=== PATIENT | male | born 1985 | race Caucasian/White ===

== ENCOUNTER 2017-04-18 13:54 | Emergency (ER) | payer OTHER ==
[2017-04-18] MEDS ORDERED: Naprosyn 500 MG PO ONE (14:47)
--- NOTE | 2017-04-18 14:51 | ERPHSYRPT ---
- History of Present Illness Time Seen by Provider: 04/18/17 14:36 Source: patient Patient Subjective Stated Complaint: last thursday was lifting something at work and felt pain in left shoulder. states the pain is getting worse and is unable to lift things at work. Triage Nursing Assessment: ambulated to room per self without difficulty. holding left shoulder. skin w/d, color normal. no deformities noted. arm warm , normal color and radial pulse good. 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 He noted left shoulder pain while working this past Thursday. Has used some naproxen from home. Pain persists and is worse with movement. No discreet fall or injury. No prior shoulder problems. No N/T. Extremities Pain Location: shoulder: left Allergies/Adverse Reactions: No Known Drug Allergies Allergy (Unverified 04/18/17 14:18) Home Medications: Alprazolam 1 mg [Xanax 1 mg] 1 mg PO BIDPRN PRN 04/18/17 [History] Hx Tetanus, Diphtheria Vaccination/Date Given: No Hx Influenza Vaccination/Date Given: No Hx Pneumococcal Vaccination/Date Given: No - Review of Systems Constitutional: No Fever, No Chills Respiratory: No Dyspnea Cardiac: No Chest Pain Musculoskeletal: Injury, Joint Pain (left shoulder), No Back Pain, No Neck Pain Neurological: No Focal Weakness, No Headache, No Parasthesia - Past Medical History Pertinent Past Medical History: No Neurological History: No Pertinent History Cardiac History: No Pertinent History Respiratory History: No Pertinent History Endocrine Medical History: No Pertinent History Musculoskeletal History: No Pertinent History Other Medical History: NONE NOTED - Past Surgical History Past Surgical History: No - Social History Smoking Status: Current every day smoker How long have you smoked: 13 Exposure to second hand smoke: Yes Drug Use: none Patient Lives Alone: No - Nursing Vital Signs Nursing Vital Signs: Initial Vital Signs Temperature 98 F 04/18/17 14:14 Pulse Rate 69 04/18/17 14:14 Respiratory Rate 16 04/18/17 14:14 Blood Pressure 140/77 04/18/17 14:14 O2 Sat by Pulse Oximetry 99 04/18/17 14:14 Pain Scale Pain Intensity 10 - Physical Exam General Appearance: alert Eyes, Ears, Nose, Throat Exam: moist mucous membranes Neck Exam: normal inspection, non-tender, supple Cardiovascular/Respiratory Exam: chest non-tender, normal breath sounds, regular rate/rhythm Back Exam: normal inspection, No vertebral tenderness Shoulder Exam: normal inspection, normal ROM, soft tissue tenderness Elbow/Forearm Exam: normal inspection, non-tender, no evidence of injury Wrist Exam: normal inspection, non-tender, no evidence of injury Hand Exam: normal inspection, non-tender, no evidence of injury Neuro/Tendon Exam: normal sensation, normal motor functions Mental Status Exam: alert, oriented x 3, cooperative Skin Exam: warm, dry SpO2 Interpretation: normal SpO2: 99 - Course Nursing assessment & vital signs reviewed: Yes - Radiology Exams left shoulder X-ray Interpretation: Reviewed by me, No Fracture, Nml Alignment Ordered Tests: Active Orders 24 hr Category Date Time Status Cold Application STAT Care 04/18/17 14:45 Active Sling Application STAT Care 04/18/17 14:45 Active SHOULDER Stat Exams 04/18/17 14:46 Ordered Medication Summary Discontinued Medications Generic Name Dose Route Start Last Admin Trade Name Rajat PRN Reason Stop Dose Admin Naproxen 500 mg 04/18/17 14:47 04/18/17 15:21 Naprosyn 500 Mg PO 04/18/17 14:48 500 mg STAT ONE Administration - Progress Progress Note: 04/18/17 15:28 Advised rest, ice, brief sling (discussed risk of frozen shoulder), continue naproxen as already taking, follow up. Counseled pt/family regarding: diagnosis, need for follow-up, rad results - Departure Time of Disposition: 15:29 Departure Disposition: Home Clinical Impression: Sprain of left shoulder Qualifiers: Encounter type: initial encounter Shoulder sprain type: unspecified sprain Qualified Code(s): S43.402A - Unspecified sprain of left shoulder joint, initial encounter Condition: Stable Critical Care Time: No Referrals: LEEANNA LOVELACE [Primary Care Provider] - Instructions: Shoulder Sprain, Shoulder Pain Additional Instructions: Brief sling for 1-2 days- take the arm out and do gentle range of motion a few times a day. Ice packs off and on. Continue naproxen as already taking. Follow up Thursday with Worker's comp doctor or Dr Lovelace. Limited use of left arm at work as restriction.
[2017-04-18 15:42] VITALS: BP 128/60; PULSE 71; O2SAT 97
--- NOTE | 2017-04-18 20:48 | XRAY ---
Indication: Pain with movement. Comparison: None 3 views of the left shoulder demonstrates mild acromioclavicular degenerative arthropathy. No other bony, articular, or soft tissue abnormalities.
== END 2017-04-18 15:42 | disposition home or self-care (01) ==
LOC: ED 13:54
DX: S43.402A Unspecified sprain of left shoulder joint, initial encounter (principal); X50.0XXA Overexertion from strenuous movement or load, initial encounter; Y92.69 Other specified industrial and construction area as the place of occurrence of the external cause; Y99.0 Civilian activity done for income or pay
CPT/HCPCS: 73030; 99283; A9270-GY

== ENCOUNTER 2020-04-10 19:52 | Emergency (ER) | payer OTHER ==
[2020-04-10] MEDS ORDERED: MORPHINE SULFATE 2 MG INJ IV ONE (20:08)
[2020-04-10] MEDS ORDERED: Zofran 4 MG/2 ML VIAL IV ONE (20:08)
[2020-04-10] MEDS ORDERED: Sodium Chloride 0.9% 1000 ML 1,000 ML IV STA (20:08)
[2020-04-10] MEDS ORDERED: Zofran 4 MG/2 ML VIAL ONE (20:13)
[2020-04-10] MEDS ORDERED: MORPHINE SULFATE 2 MG INJ ONE (20:13)
[2020-04-10] MEDS ORDERED: Sodium Chloride 0.9% 1000 ML 1,000 ML ONE (20:13)
--- NOTE | 2020-04-10 20:23 | ERPHSYRPT ---
- History of Present Illness Time Seen by Provider: 04/10/20 20:00 Historian: patient Patient Subjective Stated Complaint: " I have had pain in my belly ever since about 5pm tonight, it has been constant and it's sharp. I was eating when the pain started." Triage Nursing Assessment: Pt presents to ER with complaints of RUQ abd pains since approx 1700 today. Pt is alert and oriented x3. Ambulates without difficulty. Pt denies nausea, vomiting, diarrhea. States last BM was today and it was normal. States pain is 7/10 scale and is constant, sharp pain. Denies radiation of pain. Pt skin is pink, warm, and dry. Abd is soft but tender on right upper quad. States hurts worse with palpation. Physician History: Patient is a 34-year-old male presents to our ED with complaints of right upper quadrant pain. Right upper quadrant pain started approximately 5 PM after eating pizza. Pain described as a sharp sensation that is well localized. No radiation. Pain rated 7 out of 10. No associated nausea vomiting or diarrhea. No trauma. No fevers. Symptoms are moderate in intensity. Pain worse with palpation to the right upper quadrant. Pain improved with rest. Patient states otherwise healthy. No history of gallstones that he is aware of. Patient denies history of alcohol use. Patient is otherwise healthy. He voices no other complaints concerns at this time. Timing/Duration: today Activities at Onset: none Quality: sharpness Abdominal Pain Onset Location: RUQ Pain Radiation: no radiation Severity of Pain-Max: moderate Severity of Pain-Current: moderate Associated Symptoms: No chest pain, No diaphoresis, No diarrhea, No headache, No heartburn, No nausea, No neck pain, No rash, No shortness of breath, No syncope, No testicular pain, No vomiting, No weakness Previous symptoms: no prior history Allergies/Adverse Reactions: No Known Drug Allergies Allergy (Verified 04/10/20 20:02) Home Medications: Alprazolam 1 mg [Xanax 1 mg] 1 mg PO BIDPRN PRN 04/18/17 [History] Hx Tetanus, Diphtheria Vaccination/Date Given: Yes Hx Influenza Vaccination/Date Given: Yes Hx Pneumococcal Vaccination/Date Given: No Immunizations Up to Date: Yes Travel Risk - International Travel Have you traveled outside of the country in past 3 weeks: No - Coronavirus Screening Are you exhibiting any of the following symptoms?: No Close contact with a COVID-19 positive Pt in past 14-21 Days: No - Review of Systems Constitutional: No Symptoms, No Fever, No Chills Eyes: No Symptoms Ears, Nose, & Throat: No Symptoms Respiratory: No Symptoms, No Cough, No Dyspnea Cardiac: No Symptoms, No Chest Pain, No Edema, No Syncope Abdominal/Gastrointestinal: No Symptoms, No Abdominal Pain, No Nausea, No Vomiting, No Diarrhea Genitourinary Symptoms: No Symptoms, No Dysuria Musculoskeletal: No Symptoms, No Back Pain, No Neck Pain Skin: No Symptoms, No Rash Neurological: No Symptoms, No Dizziness, No Focal Weakness, No Sensory Changes Psychological: No Symptoms Endocrine: No Symptoms Hematologic/Lymphatic: No Symptoms Immunological/Allergic: No Symptoms All Other Systems: Reviewed and Negative - Past Medical History Pertinent Past Medical History: Yes Neurological History: No Pertinent History ENT History: No Pertinent History Cardiac History: No Pertinent History Respiratory History: No Pertinent History Endocrine Medical History: No Pertinent History Musculoskeletal History: No Pertinent History GI Medical History: No Pertinent History History: No Pertinent History Psycho-Social History: No Pertinent History Male Reproductive Disorders: No Pertinent History Other Medical History: HX FX'D RIGHT HAND LAST YEAR. ANXIETY - Past Surgical History Past Surgical History: Yes Other Surgical History: wisdom - Social History Smoking Status: Current every day smoker How long have you smoked: 16 years Exposure to second hand smoke: No Drug Use: none Patient Lives Alone: No - Nursing Vital Signs Nursing Vital Signs: Initial Vital Signs Temperature 97.8 F 04/10/20 19:57 Pulse Rate 87 04/10/20 19:57 Respiratory Rate 16 04/10/20 19:57 Blood Pressure 186/110 04/10/20 19:57 O2 Sat by Pulse Oximetry 97 04/10/20 19:57 Pain Scale Pain Intensity 4 - Physical Exam General Appearance: no apparent distress, alert Eye Exam: PERRL/EOMI, eyes nml inspection Ears, Nose, Throat Exam: normal ENT inspection, pharynx normal, moist mucous membranes Neck Exam: normal inspection, non-tender, supple, full range of motion Respiratory Exam: normal breath sounds, lungs clear, No respiratory distress Cardiovascular Exam: regular rate/rhythm, normal heart sounds Gastrointestinal/Abdomen Exam: soft, tenderness (Right upper quadrant tenderness to palpation. Overlying soft tissue intact. No signs of trauma.), guarding, No mass, No rebound, No hepatomegaly, No organomegaly Back Exam: normal inspection, normal range of motion, No CVA tenderness, No vertebral tenderness Extremity Exam: normal inspection, normal range of motion, pelvis stable Neurologic Exam: alert, oriented x 3, cooperative, normal mood/affect, nml cerebellar function, sensation nml, No motor deficits Skin Exam: normal color, warm, dry Lymphatic Exam: No adenopathy SpO2 Interpretation: normal SpO2: 97 O2 Delivery: Room Air - Course Nursing assessment & vital signs reviewed: Yes - CT Exams Abdomen/Pelvis CT Interpretation: Tele-radiologist Report (Gallbladder wall thickening and pericholecystic fluid. No definitive stone observed.) Ordered Tests: Active Orders 24 hr Category Date Time Status IV Insertion STAT Care 04/10/20 20:08 Active ABDOMEN AND PELVIS W CONTRAST [CT] Stat Exams 04/10/20 20:16 Taken CBC W DIFF Stat Lab 04/10/20 20:04 Completed CMP Stat Lab 04/10/20 20:04 Completed LIPASE Stat Lab 04/10/20 20:04 Completed TROPONIN Q3H Lab 04/10/20 20:04 Completed TROPONIN Q3H Lab 04/10/20 23:15 Ordered TROPONIN Q3H Lab 04/11/20 02:15 Ordered TROPONIN Q3H Lab 04/11/20 05:15 Ordered TROPONIN Q3H Lab 04/11/20 08:15 Ordered Medication Summary Discontinued Medications Generic Name Dose Route Start Last Admin Trade Name Freq PRN Reason Stop Dose Admin Sodium Chloride 1,000 mls @ 999 mls/hr 04/10/20 20:08 04/10/20 21:41 Sodium Chloride 0.9% 1000 Ml IV 04/10/20 21:08 Infused .Q1H1M STA Infusion Sodium Chloride Confirm 04/10/20 20:13 Sodium Chloride 0.9% 1000 Ml Administered 04/10/20 20:14 Dose 1,000 mls @ ud .ROUTE .STK-MED ONE Morphine Sulfate 2 mg 04/10/20 20:08 04/10/20 20:15 Morphine Sulfate 2 Mg Inj IV 04/10/20 20:09 2 mg STAT ONE Administration Morphine Sulfate Confirm 04/10/20 20:13 Morphine Sulfate 2 Mg Inj Administered 04/10/20 20:14 Dose 2 mg .ROUTE .STK-MED ONE Ondansetron HCl 4 mg 04/10/20 20:08 04/10/20 20:14 Zofran 4 Mg/2 Ml Vial IV 04/10/20 20:09 4 mg STAT ONE Administration Ondansetron HCl Confirm 04/10/20 20:13 Zofran 4 Mg/2 Ml Vial Administered 04/10/20 20:14 Dose 4 mg .ROUTE .STK-MED ONE Lab/Rad Data: Laboratory Result Diagrams 04/10/20 20:04 04/10/20 20:04 Laboratory Results 04/10/20 04/10/20 04/10/20 Range/Units 20:04 20:04 20:04 WBC 10.2 (4.0-10.5) K/mm3 RBC 5.18 (4.1-5.6) M/mm3 Hgb 15.4 (12.5-18.0) gm/dl Hct 46.5 (42-50) % MCV 89.8 (78-100) fl MCH 29.7 (26-32) pg MCHC 33.1 (32-36) g/dl RDW 13.4 (11.5-14.0) % Plt Count 249 (150-450) K/mm3 MPV 10.5 (7.5-11.0) fl Gran % 64.8 (36.0-66.0) % Eos # (Auto) 0.18 (0-0.5) Absolute Lymphs (auto) 2.77 (1.0-4.6) Absolute Monos (auto) 0.60 (0.0-1.3) Lymphocytes % 27.3 (24.0-44.0) % Monocytes % 5.9 (0.0-12.0) % Eosinophils % 1.8 (0.00-5.0) % Basophils % 0.2 (0.0-0.4) % Absolute Granulocytes 6.58 (1.4-6.9) Basophils # 0.02 (0-0.4) Sodium 141 (137-145) mmol/L Potassium 3.9 (3.5-5.1) mmol/L Chloride 105 (98-107) mmol/L Carbon Dioxide 30 (22-30) mmol/L Anion Gap 9.7 (5-15) MEQ/L BUN 11 (9-20) mg/dL Creatinine 0.95 (0.66-1.25) mg/dL Estimated GFR > 60.0 ML/MIN Glucose 107 H (74-106) mg/dL Calcium 9.6 (8.4-10.2) mg/dL Total Bilirubin 0.20 (0.2-1.3) mg/dL AST 26 (17-59) U/L ALT 32 (0-50) U/L Alkaline Phosphatase 76 (38-126) U/L Troponin I < 0.012 (0.000-0.034) ng/mL Serum Total Protein 7.6 (6.3-8.2) g/dL Albumin 4.6 (3.5-5.0) g/dL Lipase 98 (23-300) U/L - Progress Progress: improved Progress Note: 04/10/20 21:53 Patient reassessed. Pain improved. However patient continues to experience right upper quadrant pain. Case discussed with who suggested discharging patient and have him follow-up tomorrow however patient is uncomfo rtable and has received morphine for pain control. Dr. Mendez advised transfer to [facility]. Plan of care discussed with patient. He agrees to transfer to [facility]. However patient requesting to drive. We advised against that as patient just received morphine. Patient is calling family member for a ride to [facility]. We are arranging transfer on our end. 04/10/20 22:[address] Jordan who accepts transfer to [facility]. Plan of care discussed with patient. Discussed with : Mora Will see patient in: other (Transferred to [facility].) Counseled pt/family regarding: lab results, diagnosis, need for follow-up, rad results - Departure Departure Disposition: Transfer Clinical Impression: Acute cholecystitis, Splenomegaly, Abdominal pain Condition: Stable Critical Care Time: No Referrals: FELIPE BURRIS [Primary Care Provider] -
[2020-04-10 20:26] LABS: Absolute Neutrophil Ct (ANC) 6.58 (1.4-6.9); BASOPHIL % 0.2 % (0.0-0.4); Basophil (Absolute #) 0.02 (0-0.4); Eosinophil % 1.8 % (0.00-5.0); Eosinophil (Absolute #) 0.18 (0-0.5); Hematocrit 46.5 % (42-50); Hemoglobin 15.4 gm/dl (12.5-18.0); Lymphocyte (Absolute #) 2.77 (1.0-4.6); Lymphocytes % 27.3 % (24.0-44.0); Mean Cell Volume 89.8 fl (78-100); Mean Corpuscular Hemoglobin 29.7 pg (26-32); Mean Corpuscular Hgb Concent. 33.1 g/dl (32-36); Mean Platelet Volume 10.5 fl (7.5-11.0); Monocytes % 5.9 % (0.0-12.0); Neutrophil % 64.8 % (36.0-66.0); Platelet Count 249 K/mm3 (150-450); Red Blood Count 5.18 M/mm3 (4.1-5.6); Red Cell Distribution Width 13.4 % (11.5-14.0); White Blood Count 10.2 K/mm3 (4.0-10.5)
[2020-04-10 20:46] LABS: ALBUMIN 4.6 g/dL (3.5-5.0); ALKALINE PHOSPHATASE 76 U/L (38-126); ANION GAP 9.7 MEQ/L (5-15); BLOOD UREA NITROGEN 11 mg/dL (9-20); CHLORIDE 105 mmol/L (98-107); Calcium 9.6 mg/dL (8.4-10.2); Carbon Dioxide 30 mmol/L (22-30); Creatinine 1 0.95 mg/dL (0.66-1.25); EST GLOMERULAR FILTRATION RATE > 60.0 ML/MIN; Glucose 107 mg/dL (74-106); LIPASE 98 U/L (23-300); Potassium 3.9 mmol/L (3.5-5.1); SGOT/AST 26 U/L (17-59); SGPT/ALT 32 U/L (0-50); SODIUM 141 mmol/L (137-145); Total Protein 7.6 g/dL (6.3-8.2)
[2020-04-10] MEDS ORDERED: Zosyn 3.375 GM Vial 3.375 GM in Sodium Chloride 100ML MINI-BAG PLUS 100 ML IV ONE (22:17)
[2020-04-10] MEDS ORDERED: Zosyn 3.375 GM Vial IV ONE (22:20)
[2020-04-10] MEDS ORDERED: Sodium Chloride 100ML MINI-BAG PLUS 100 ML IV ONE (22:21)
[2020-04-11 02:04] VITALS: BP 124/93; PULSE 66; O2SAT 96
--- NOTE | 2020-04-11 08:41 | XRAY ---
Exam: CT of the abdomen and pelvis with IV contrast from 04/10/2020. CTDI: 10.07 mGy Comparison: CT of the abdomen and pelvis without IV contrast from 02/10/2020. Indication: 34-year-old male with right upper quadrant abdominal pain 3 hours. Technique: Post-IV contrast axial images were obtained through the abdomen and pelvis during automated injection of 80 ML's of Isovue 370 contrast material. No oral contrast was given. Reconstructed coronal and sagittal images were created and reviewed. Findings: The visualized lung bases appear clear. A moderate amount of fluid/secretions are noted within the stomach lumen. The liver is of unremarkable size and reveals no mass or intrahepatic biliary duct distention. The gallbladder is distended and reveals no dense calcifications within it. However, there is a suggestion of mild gallbladder wall thickening with perhaps a small amount of pericholecystic edema and fat stranding. These findings could be due to acute cholecystitis. Consider further evaluation with a gallbladder ultrasound or radionuclide hepatobiliary scan. The spleen is of normal size and reveals no mass. The pancreas and adrenal glands appear normal. The kidneys are of normal size and function on delay images. There is a small extrarenal pelvis on the left. No renal mass or hydronephrosis is seen. I see no evidence of renal calculi on the early post IV contrast images. There is no evidence of abdominal aortic aneurysm or abnormal retroperitoneal lymphadenopathy. No bowel containing ventral abdominal wall hernia or free intraperitoneal air is seen. There is a tiny amount of protrusion of intra-abdominal fat into the subcutaneous fat at the level of the umbilicus on sagittal images #104 and 105. Some scattered stool is seen throughout the colon. I see no evidence of bowel obstruction or bowel wall thickening. The appendix is noted within the right lower quadrant and appears unremarkable. I see no abnormal pelvic mass, enlarged pelvic lymph nodes, or free intraperitoneal fluid. The seminal vesicles and prostate gland appear unremarkable. No definite abnormality of the urinary bladder is seen. Some small postinflammatory lymph nodes are seen within each groin. The skeleton reveals no acute fracture or aggressive bone lesion. Impression: 1. There appears to be some gallbladder wall thickening with perhaps some pericholecystic edema/fluid and minimal fat stranding suspicious for acute cholecystitis. No definite dense calcifications are seen within the gallbladder lumen. Consider further evaluation with a gallbladder ultrasound or radionuclide hepatobiliary scan. 2. No other acute process is seen within the abdomen or pelvis.
== END 2020-04-11 02:13 | disposition short-term general hospital (02) ==
LOC: ED 19:52
DX: K81.0 Acute cholecystitis (principal); R16.1 Splenomegaly, not elsewhere classified; R10.9 Unspecified abdominal pain
CPT/HCPCS: 36000; 36415; 74177; 80053; 83690; 84484; 85025; 96360; 96365; 96374; 96375; 99285; J2270; J2405

== ENCOUNTER 2020-06-12 11:15 | Observation (INO) | payer OTHER ==
[2020-06-12 12:03] LABS: Absolute Neutrophil Ct (ANC) 7.32 (1.4-6.9); BASOPHIL % 0.3 % (0.0-0.4); Basophil (Absolute #) 0.03 (0-0.4); Eosinophil % 1.6 % (0.00-5.0); Eosinophil (Absolute #) 0.16 (0-0.5); Hematocrit 46.3 % (42-50); Hemoglobin 15.4 gm/dl (12.5-18.0); Lymphocyte (Absolute #) 1.96 (1.0-4.6); Lymphocytes % 19.3 % (24.0-44.0); Mean Cell Volume 90.6 fl (78-100); Mean Corpuscular Hemoglobin 30.1 pg (26-32); Mean Corpuscular Hgb Concent. 33.3 g/dl (32-36); Mean Platelet Volume 9.6 fl (7.5-11.0); Monocyte (Absolute #) 0.71 (0.0-1.3); Neutrophil % 71.8 % (36.0-66.0); Platelet Count 242 K/mm3 (150-450); Red Blood Count 5.11 M/mm3 (4.1-5.6); Red Cell Distribution Width 13.3 % (11.5-14.0); White Blood Count 10.2 K/mm3 (4.0-10.5)
[2020-06-12] MEDS ORDERED: MORPHINE SULFATE 2 MG INJ IV ONE (12:10)
--- NOTE | 2020-06-12 12:10 | ERPHSYRPT ---
- History of Present Illness Time Seen by Provider: 06/12/20 11:35 Historian: patient Exam Limitations: no limitations Patient Subjective Stated Complaint: Pt states that he is having pain in his RUQ that he states is his gall bladder due to he was having issues in March with it. Triage Nursing Assessment: Pt brought to the ER by his girlfriend, hypertensive, pain in the RUQ, pulses normal, diaphoretic, refuses to wear mask correctly, last intake at 0900, denies any issues with bowels, rates pain 5/10 Physician History: Patient is a 34-year-old male presents to our ED with complaints of right upper quadrant pain. Pain started today and became significantly worse after eating candy. Patient states he has a history of gallbladder disease. Patient does not know if he has got gallstones. Patient states that he had right upper quadrant pain in March. He has had no follow-up since. Pain described as an ache. That is localized. No radiation. Pain worse postprandial. Pain reproduced with palpation to the right upper quadrant. No trauma. No fever. No nausea or vomiting. No diarrhea. No chest pain or shortness of breath. Patient is otherwise healthy. He voices no other complaints or concerns at this time. Timing/Duration: today Activities at Onset: none Quality: aching Abdominal Pain Onset Location: RUQ Pain Radiation: no radiation Severity of Pain-Max: moderate Severity of Pain-Current: mild Modifying Factors: Improves With: eating, palpation, rest. Worsens With: breathing, coughing, defecating, exercise, lying down, urinating, vomiting, position, walking Associated Symptoms: No diaphoresis, No diarrhea, No fever/chills, No headache, No heartburn, No loss of appetite, No nausea, No neck pain, No shortness of breath, No vomiting, No weakness Previous symptoms: same symptoms as today Allergies/Adverse Reactions: No Known Drug Allergies Allergy (Verified 06/12/20 11:29) Home Medications: Alprazolam 1 mg [Xanax 1 mg] 1 mg PO BIDPRN PRN 04/18/17 [History] Hx Tetanus, Diphtheria Vaccination/Date Given: Yes Hx Influenza Vaccination/Date Given: Yes Hx Pneumococcal Vaccination/Date Given: No Travel Risk - International Travel Have you traveled outside of the country in past 3 weeks: No - Coronavirus Screening Are you exhibiting any of the following symptoms?: No Close contact with a COVID-19 positive Pt in past 14-21 Days: No - Review of Systems Constitutional: No Symptoms, No Fever, No Chills Eyes: No Symptoms Ears, Nose, & Throat: No Symptoms Respiratory: No Symptoms, No Cough, No Dyspnea Cardiac: No Symptoms, No Chest Pain, No Edema, No Syncope Abdominal/Gastrointestinal: No Symptoms, No Abdominal Pain, No Nausea, No Vomiting, No Diarrhea Genitourinary Symptoms: No Symptoms, No Dysuria Musculoskeletal: No Symptoms, No Back Pain, No Neck Pain Skin: No Symptoms, No Rash Neurological: No Symptoms, No Dizziness, No Focal Weakness, No Sensory Changes Psychological: No Symptoms Endocrine: No Symptoms Hematologic/Lymphatic: No Symptoms Immunological/Allergic: No Symptoms All Other Systems: Reviewed and Negative - Past Medical History Pertinent Past Medical History: Yes Neurological History: No Pertinent History ENT History: No Pertinent History Cardiac History: No Pertinent History Respiratory History: No Pertinent History Endocrine Medical History: No Pertinent History Musculoskeletal History: No Pertinent History GI Medical History: No Pertinent History History: No Pertinent History Psycho-Social History: No Pertinent History Male Reproductive Disorders: No Pertinent History Other Medical History: HX FX'D RIGHT HAND LAST YEAR. ANXIETY - Past Surgical History Past Surgical History: Yes Other Surgical History: wisdom - Social History Smoking Status: Current every day smoker How long have you smoked: 16 years Exposure to second hand smoke: Yes Drug Use: none Patient Lives Alone: No - Nursing Vital Signs Nursing Vital Signs: Initial Vital Signs Temperature 98.3 F 06/12/20 11:19 Pulse Rate 61 06/12/20 11:19 Blood Pressure 157/78 06/12/20 11:19 O2 Sat by Pulse Oximetry 99 06/12/20 11:19 Pain Scale Pain Intensity 5 - Physical Exam General Appearance: no apparent distress, alert Eye Exam: PERRL/EOMI, eyes nml inspection Ears, Nose, Throat Exam: normal ENT inspection, pharynx normal, moist mucous membranes Neck Exam: normal inspection, non-tender, supple, full range of motion Respiratory Exam: normal breath sounds, lungs clear, No respiratory distress Cardiovascular Exam: regular rate/rhythm, normal heart sounds Gastrointestinal/Abdomen Exam: soft, tenderness, other (Tenderness palpation right upper quadrant.), No distention, No mass, No guarding Back Exam: normal inspection, normal range of motion, No CVA tenderness, No vertebral tenderness Extremity Exam: normal inspection, normal range of motion, pelvis stable Neurologic Exam: alert, oriented x 3, cooperative, normal mood/affect, nml cerebellar function, sensation nml, No motor deficits Skin Exam: normal color, warm, dry Lymphatic Exam: No adenopathy SpO2 Interpretation: normal SpO2: 99 O2 Delivery: Room Air - Course Nursing assessment & vital signs reviewed: Yes - Radiology Ultrasound Exam Gallbladder Ultrasound: tele radiology report (Gallbladder is distended with tiny gallstones. Gallbladder wall is thickened. CBD is normal. Fatty liver. Pancreas not visualized.) Ordered Tests: Active Orders 24 hr Category Date Time Status ABDOMEN AND PELVIS W CONTRAST [CT] Stat Exams 06/12/20 11:27 Completed GALLBLADDER [US] Stat Exams 06/12/20 11:27 Completed CBC W DIFF Stat Lab 06/12/20 11:50 Completed CMP Stat Lab 06/12/20 11:50 Completed LIPASE Stat Lab 06/12/20 11:50 Completed TROPONIN Q3H Lab 06/12/20 11:50 Completed TROPONIN Q3H Lab 06/12/20 14:14 Completed TROPONIN Q3H Lab 06/12/20 17:30 Ordered TROPONIN Q3H Lab 06/12/20 20:30 Ordered TROPONIN Q3H Lab 06/12/20 23:30 Ordered UA W/RFX UR CULTURE Stat Lab 06/12/20 11:27 Ordered Medication Summary Generic Name Dose Route Start Last Admin Trade Name Freq PRN Reason Stop Dose Admin Miscellaneous Medication 1 each 06/12/20 15:58 No Anticoagulants Or Blood Thinners/Aspirin MC 07/12/20 15:57 PRN PRN Discontinued Medications Generic Name Dose Route Start Last Admin Trade Name Freq PRN Reason Stop Dose Admin Morphine Sulfate 2 mg 06/12/20 12:10 06/12/20 12:24 Morphine Sulfate 2 Mg Inj IV 06/12/20 12:11 2 mg STAT ONE Administration Morphine Sulfate Confirm 06/12/20 12:22 Morphine Sulfate 2 Mg Inj Administered 06/12/20 12:23 Dose 2 mg .ROUTE .Qumu-Attero ONE Lab/Rad Data: Laboratory Result Diagrams 06/12/20 11:50 06/12/20 11:50 Laboratory Results 06/12/20 06/12/20 06/12/20 Range/Units 14:14 11:50 11:50 WBC (4.0-10.5) K/mm3 RBC (4.1-5.6) M/mm3 Hgb (12.5-18.0) gm/dl Hct (42-50) % MCV (78-100) fl MCH (26-32) pg MCHC (32-36) g/dl RDW (11.5-14.0) % Plt Count (150-450) K/mm3 MPV (7.5-11.0) fl Gran % (36.0-66.0) % Eos # (Auto) (0-0.5) Absolute Lymphs (auto) (1.0-4.6) Absolute Monos (auto) (0.0-1.3) Lymphocytes % (24.0-44.0) % Monocytes % (0.0-12.0) % Eosinophils % (0.00-5.0) % Basophils % (0.0-0.4) % Absolute Granulocytes (1.4-6.9) Basophils # (0-0.4) Sodium 139 (137-145) mmol/L Potassium 4.1 (3.5-5.1) mmol/L Chloride 103 (98-107) mmol/L Carbon Dioxide 30 (22-30) mmol/L Anion Gap 9.7 (5-15) MEQ/L BUN 10 (9-20) mg/dL Creatinine 0.84 (0.66-1.25) mg/dL Estimated GFR > 60.0 ML/MIN Glucose 104 (74-106) mg/dL Calcium 9.3 (8.4-10.2) mg/dL Total Bilirubin 0.30 (0.2-1.3) mg/dL AST 19 (17-59) U/L ALT 25 (0-50) U/L Alkaline Phosphatase 82 (38-126) U/L Troponin I < 0.012 < 0.012 (0.000-0.034) ng/mL Serum Total Protein 7.4 (6.3-8.2) g/dL Albumin 4.2 (3.5-5.0) g/dL Lipase 60 (23-300) U/L 11/24/20 Range/Units 11:50 WBC 10.2 (4.0-10.5) K/mm3 RBC 5.11 (4.1-5.6) M/mm3 Hgb 15.4 (12.5-18.0) gm/dl Hct 46.3 (42-50) % MCV 90.6 (78-100) fl MCH 30.1 (26-32) pg MCHC 33.3 (32-36) g/dl RDW 13.3 (11.5-14.0) % Plt Count 242 (150-450) K/mm3 MPV 9.6 (7.5-11.0) fl Gran % 71.8 H (36.0-66.0) % Eos # (Auto) 0.16 (0-0.5) Absolute Lymphs (auto) 1.96 (1.0-4.6) Absolute Monos (auto) 0.71 (0.0-1.3) Lymphocytes % 19.3 L (24.0-44.0) % Monocytes % 7.0 (0.0-12.0) % Eosinophils % 1.6 (0.00-5.0) % Basophils % 0.3 (0.0-0.4) % Absolute Granulocytes 7.32 H (1.4-6.9) Basophils # 0.03 (0-0.4) Sodium (137-145) mmol/L Potassium (3.5-5.1) mmol/L Chloride (98-107) mmol/L Carbon Dioxide (22-30) mmol/L Anion Gap (5-15) MEQ/L BUN (9-20) mg/dL Creatinine (0.66-1.25) mg/dL Estimated GFR ML/MIN Glucose (74-106) mg/dL Calcium (8.4-10.2) mg/dL Total Bilirubin (0.2-1.3) mg/dL AST (17-59) U/L ALT (0-50) U/L Alkaline Phosphatase (38-126) U/L Troponin I (0.000-0.034) ng/mL Serum Total Protein (6.3-8.2) g/dL Albumin (3.5-5.0) g/dL Lipase (23-300) U/L - Progress Progress: improved Progress Note: 06/12/20 16:05 Imaging study of the gallbladder suggests chronic cholecystitis. Case discussed with Dr. Monroe. Dr. Monroe advised admission for cholecystectomy. Plan of care discussed with patient. Patient agrees. Patient wants her gallbladder removed that it has been a chronic issue since March and symptoms are getting progressively worse. Patient agrees to admission to [facility] for further evaluation and treatment. Patient is and will maintain n.p.o. status. Will see patient in: hospital (observation) Counseled pt/family regarding: lab results, diagnosis, rad results - Departure Clinical Impression: Chronic cholecystitis, Hepatic steatosis, Cholelithiasis Condition: Stable Critical Care Time: No
[2020-06-12 12:17] LABS: ALBUMIN 4.2 g/dL (3.5-5.0); ALKALINE PHOSPHATASE 82 U/L (38-126); ANION GAP 9.7 MEQ/L (5-15); BLOOD UREA NITROGEN 10 mg/dL (9-20); CHLORIDE 103 mmol/L (98-107); Calcium 9.3 mg/dL (8.4-10.2); Carbon Dioxide 30 mmol/L (22-30); Creatinine 1 0.84 mg/dL (0.66-1.25); EST GLOMERULAR FILTRATION RATE > 60.0 ML/MIN; Glucose 104 mg/dL (74-106); LIPASE 60 U/L (23-300); Potassium 4.1 mmol/L (3.5-5.1); SGOT/AST 19 U/L (17-59); SGPT/ALT 25 U/L (0-50); SODIUM 139 mmol/L (137-145); Total Protein 7.4 g/dL (6.3-8.2)
[2020-06-12] MEDS ORDERED: MORPHINE SULFATE 2 MG INJ ONE (12:22)
--- NOTE | 2020-06-12 12:31 | XRAY ---
Indication: Right upper quadrant pain. Two-dimensional gallbladder sonogram performed. Comparison: None Pancreas not well seen due to overlying bowel gas. Gallbladder moderately distended with a few tiny gallstones/gravel in the dependent portion. Gallbladder wall is abnormally thickened measuring 5.4 mm. No pericholecystic fluid. Common bile duct measures 3.5 mm. No intrahepatic biliary distention. Mild fatty echogenic liver without focal solid/cystic mass or ascites. Visualized right kidney sonographically normal measuring 10.1 cm in length. Impression: 1. Distended gallbladder with tiny gallstones/gravel and abnormal wall thickening. Rule out chronic cholecystitis. 2. Fatty liver. 3. Nonvisualization pancreas.
--- NOTE | 2020-06-12 13:15 | XRAY ---
Indication: Right abdomen pain. Multiple contiguous axial images obtained through the abdomen and pelvis using 80 cc Isovue 370 contrast only. Comparison: April 10, 2020. Lung bases remain clear. Heart is not enlarged. Stomach is distended with food/fluid. Noncontrasted stomach and bowel loops remain nonobstructed. Normal appendix. Again mild diffuse scattered colonic fecal debris throughout, more than before. Gallbladder remains moderately distended with wall thickening without gallstones or biliary distention. Remaining liver, pancreas, spleen, adrenal glands, kidneys, ureters, bladder, and aorta appear unremarkable. No pathologic retroperitoneal lymphadenopathy. Osseous structures intact. No ventral or inguinal hernias. Impression: 1. Again distended gallbladder with wall thickening. See same-day gallbladder sonogram. 2. Worsening mild diffuse fecal stasis. 3. Remaining CT abdomen/pelvis without contrast exam is negative.
[2020-06-12 14:54] LABS: Appearance CLEAR (CLEAR); Bacteria RARE /HPF (NEGATIVE); Bilirubin NEGATIVE (NEGATIVE); Blood LARGE Ery/ul (0-5); Glucose NEGATIVE (NEGATIVE); Ketones NEGATIVE (NEGATIVE); Leukocyte Esterase NEGATIVE (NEGATIVE); Mucus SLIGHT /HPF (NEGATIVE); Nitrite NEGATIVE (NEGATIVE); Protein,Urine Dip NEGATIVE (Negative); Specific Gravity 1.021 (1.005-1.025); Urobilinogen NEGATIVE mg/dL (0-1)
[2020-06-12] MEDS ORDERED: NO ANTICOAGULANTS OR BLOOD THINNERS/ASPIRIN MC PRN (15:58)
[2020-06-12] MEDS ORDERED: MORPHINE SULFATE 4 MG INJ IV PRN (17:09)
[2020-06-12] MEDS: Zosyn 3.375 GM Vial 3.375 GM in Sodium Chloride 100ML MINI-BAG PLUS 100 ML IV SCH (17:56)
[2020-06-12] MEDS: Sodium Chloride 0.9% 1000 ML 1,000 ML IV SCH (17:56)
[2020-06-13] MEDS ORDERED: Sodium Chloride 100ML MINI-BAG PLUS 100 ML IV ONE (00:40)
[2020-06-13] MEDS ORDERED: Zosyn 3.375 GM Vial IV ONE (00:40)
[2020-06-13] MEDS: Zosyn 3.375 GM Vial 3.375 GM in Sodium Chloride 100ML MINI-BAG PLUS 100 ML IV SCH ×3 (00:41→13:22)
[2020-06-13] MEDS: Sodium Chloride 0.9% 1000 ML 1,000 ML IV SCH (04:53)
[2020-06-13] MEDS ORDERED: MEFOXIN 2 GM PREMIX** 2 GM/50 ML ML IV SCH (09:00)
[2020-06-13] MEDS ORDERED: Lactated Ringers 1,000 ML IV SCH (09:00)
[2020-06-13] MEDS ORDERED: XANAX 1 MG PO PRN (09:40)
--- NOTE | 2020-06-13 09:51 | HP ---
CHIEF COMPLAINT: Right upper quadrant abdominal pain. HISTORY OF PRESENT ILLNESS: The patient is a 34 year old white male patient who presented to the emergency room with complaints of right upper quadrant pain. He reports he has been having problems off and on since March at which time he was found to have abnormal gallbladder. He had multiple stones in his gallbladder and the patient was admitted to the hospital four surgical evaluation and was scheduled for laparoscopic cholecystectomy. PAST MEDICAL/SURGICAL HISTORY: The patient's medical history is otherwise essentially remarkable only for taking Xanax on PRN basis for anxiety. He has no other significant past medical history. HOME MEDICATIONS: Xanax. ALLERGIES: NKDA. PHYSICAL EXAMINATION: His vital signs on admission showed a temperature of 98.3F, pulse 61, respiratory rate 16, blood pressure 157/70. O2 saturation 99%. HEENT: Normocephalic, atraumatic. Pupils equal round reactive to light. Extraocular movements intact. Oropharynx is pink and moist. NECK: Supple without lymphadenopathy, thyromegaly or JVD. CHEST: Clear to auscultation. HEART: Regular rate and rhythm. ABDOMEN: Soft, slightly tender in the right upper quadrant. No palpable masses are felt. EXTREMITIES: Without cyanosis, clubbing or edema. NEUROLOGIC: The patient is alert and oriented x3. LAB DATA AND TESTS: Laboratory studies so far tele-radiology showed gallbladder distended with tiny gallstones. Gallbladder wall is thickened. Common bile duct was felt to be normal. The patient's troponin was less than 0.012 on at least three different occasions. His UA was normal with specific gravity of 1.021. Metabolic panel was entirely normal with normal liver enzymes. CBC was entirely normal as well with white count of 10,200. The gallbladder ultrasound showed distension with tiny gallstones, gravel and abnormal wall thickening; rule out chronic cholecystitis. ASSESSMENT AND PLAN: The patient was admitted to the hospital for IV fluids, made NPO and surgical consultation and plan for laparoscopic cholecystectomy at 1100 hours today. Afterwards the patient is expected to go home as per surgery's recommendations.
[2020-06-13] MEDS ORDERED: Sensorcaine 0.25% 10 ML ONE (10:02)
[2020-06-13] MEDS ORDERED: Lactated Ringers 1,000 ML IV ONE (10:03)
[2020-06-13] MEDS ORDERED: Xylocaine-Mpf 2% 5 Ml Vial ONE (11:52)
[2020-06-13] MEDS ORDERED: Zemuron 100 MG/10 ML ONE (11:52)
[2020-06-13] MEDS ORDERED: Zofran 4 MG/2 ML VIAL ONE (11:52)
[2020-06-13] MEDS ORDERED: TORAdol 30 mg Injection ONE (11:52)
[2020-06-13] MEDS ORDERED: DIPRIVAN 200 MG/20 ML IV ONE (11:52)
[2020-06-13] MEDS ORDERED: BRIDION 200MG/2ML IV ONE (11:52)
[2020-06-13] MEDS ORDERED: Decadron 4 MG INJ ONE (11:52)
[2020-06-13] MEDS ORDERED: SUBLIMAZE 250 MCG/5 ML ONE (11:53)
--- NOTE | 2020-06-13 13:06 | CONS ---
CONSULT DATE: 06/13/2020 REASON FOR CONSULT: Right upper quadrant abdominal pain. HISTORY: The patient is a 34 year-old male who since March started having episodes of right upper quadrant abdominal pain. He cannot associate it with anything specific but it would come and go on its own. However on the day of admission, the patient had severe right upper quadrant pain that would not go away. No other associated symptoms. Emergency department work up revealed gallstones consistent with acute cholecystitis. PAST MEDICAL HISTORY: Anxiety. PAST SURGICAL HISTORY: None. FAMILY HISTORY: No abdominal cancers. SOCIAL HISTORY: One pack per day smoker, not a daily drinker. MEDICATIONS: Alprazolam. ALLERGIES: NONE. REVIEW OF SYSTEMS: Otherwise negative. PHYSICAL EXAMINATION: Afebrile. Vital signs normal. No acute distress. HEENT: No scleral icterus. NECK: Symmetric, no mass. CHEST: Nonlabored respirations. HEART: Regular rate and rhythm. ABDOMEN: He is nondistended, soft, nontender to palpation in the right upper quadrant. EXTREMITIES: No edema. He is moving all extremities. NEURO: Russ Coma Scale (GSC) 15. LAB DATA AND TESTS: CBC, BMP, hepatic function panel, lipase reviewed not consistent with any obstructive pathology. Imaging with ultrasound showed distended gallbladder with gallstones and wall thickening. ASSESSMENT AND PLAN: A 34 year-old male presents with acute cholecystitis. His pain has improved overnight. Discussed with patient options of cholecystectomy now with risks of infection, bleeding, injury to nearby structures, bile duct, hernia versus nonoperative management. He wants to proceed with surgery. Plan for cholecystectomy.
[2020-06-13] MEDS ORDERED: SUBLIMAZE 100 MCG/2 ML ONE (13:39)
--- NOTE | 2020-06-13 13:52 | OP ---
SURGERY DATE/TIME: 06/13/2020 1227 PREOPERATIVE DIAGNOSIS: Chronic cholecystitis. POSTOPERATIVE DIAGNOSES: Chronic cholecystitis. PROCEDURE: Laparoscopic cholecystectomy. SURGEON: Anival Monroe M.D. ANESTHESIA: General. ESTIMATED BLOOD LOSS: 50. CONDITION: Patient condition stable. COMPLICATIONS: None. SPECIMEN: Gallbladder. HISTORY: The patient is a 34 year-old male who over the last three months has had intermittent right upper quadrant abdominal pain. He had been to the emergency room once before and he does not remember them finding stones but apparently he had previous stones diagnosed and never followed up. On the day of presentation, he had severe persistent right upper quadrant abdominal pain. Emergency department evaluation showed essentially normal labs and ultrasound showing stones and wall thickening. He was admitted to the floor. Overnight his symptoms dramatically improved. Discussion had with the patient of the risks of infection, bleeding, bile leak, hernia, injury to major structure and nonoperative management and he elected to proceed with surgery. FINDINGS: Chronic adhesions, omental adhesions and inflammation to the gallbladder with just some mild acute inflammation. Critical view obtained. DESCRIPTION OF PROCEDURE: The patient was brought to the operating room. General anesthesia was induced. He was placed supine with arms up. SCD's were applied on. He was routinely prepped and draped. Time out performed. He received preoperative antibiotic. A Veress needle inserted in the left upper quadrant. Opening pressure was 3. Pneumoperitoneum established. A 5 mm Optiview trocar placed in left upper quadrant. Abdomen surveyed. An 11 mm supraumbilical trocar was placed. Two additional 5 mm trocars were placed in the right upper quadrant. The gallbladder was retracted. There was quite a bit of omental adhesions to the gallbladder. These were taken down. Gallbladder was then retracted. The cystic duct and cystic artery were dissected out with a combination of L-hook cautery, [place] and blunt dissection. Critical view was clearly obtained. The cystic duct was taken three down and one up with a 5 mm [place] metal clip law enforcement director. Cystic artery taken with a 5 mm [place] clip law enforcement director. Both were divided. The gallbladder was taken off the liver bed. It was placed in a specimen bag and removed from the 11 trocar site and sent to pathology. The trocar was reinserted. Right upper quadrant was re-examined. The clips were in good position. There was good hemostasis. There was a little bit of blood that was suctioned and irrigated until clean. There is good hemostasis and good clip position. The 11 trocar removed and closed with 0 Vicryl suture passer. Right upper quadrant ports removed under direct visualization. Left upper quadrant port used for desufflation and removed. All counts were correct. The skin was closed with 4-0 Vicryl suture. Steri-Strips applied. The patient tolerated the procedure well with extubation and taken to recovery in stable condition.
[2020-06-13 15:35] VITALS: BP 123/55; PULSE 72; O2SAT 93
[2020-06-13] MEDS ORDERED: NORCO 5/325 MG PO PRN (16:24)
[2020-06-13] MEDS ORDERED: TYLENOL 325 MG PO PRN (16:24)
== END 2020-06-13 17:37 | disposition home or self-care (01) ==
LOC: ED 11:15 → MED SURG 15:56
PROVIDERS: ADMIT Family Medicine; ATTEND Family Medicine
DX: K81.1 Chronic cholecystitis (principal)
CPT/HCPCS: 36415; 47562; 74177; 76705; 80053; 81001; 83690; 84484; 85025; 87086; 96374; 99284; G0378; J1100; J1885; J2270; J2405; J2704; J3010

== ENCOUNTER 2024-08-17 14:43 | Emergency (ER) | payer BC, OTHER ==
[2024-08-17 15:04] VITALS: TEMP 97.6
--- NOTE | 2024-08-17 15:31 | ERPHSYRPT ---
- History of Present Illness Time Seen by Provider: 08/17/24 14:51 Source: patient Exam Limitations: no limitations Patient Subjective Stated Complaint: C/O BLE edema for approx one week Triage Nursing Assessment: Patient ambulated back to ER. He is alert and oriented. NO SOB. Patient with edema present to BLE. BLE are warm and red. CHUCKIE ALMENDAREZ. Physician History: 38 years old healthy male presented in the ER with complaints of bilateral lower extremity swelling for 1 week with progressive worsening. Patient reports bi lateral leg tightness with some redness. Denies any fall or trauma. No chest pain palpitations or shortness of breath. No history of DVT. Allergies/Adverse Reactions: No Known Drug Allergies Allergy (Verified 08/17/24 14:53) Hx Tetanus, Diphtheria Vaccination/Date Given: Yes Hx Influenza Vaccination/Date Given: No Hx Pneumococcal Vaccination/Date Given: No Immunizations Up to Date: Yes Travel Risk - International Travel Have you traveled outside of the country in past 3 weeks: No - Emerging Infectious Disease Are you exhibiting symptoms associated with any current EIDs: No - Review of Systems Constitutional: No Symptoms Ears, Nose, & Throat: No Symptoms Respiratory: No Symptoms Cardiac: Edema Abdominal/Gastrointestinal: No Symptoms Genitourinary Symptoms: No Symptoms Musculoskeletal: No Symptoms Skin: Cellulitis, Rash Psychological: No Symptoms Endocrine: No Symptoms - Past Medical History Pertinent Past Medical History: Yes Neurological History: No Pertinent History ENT History: No Pertinent History Cardiac History: Hypertension Respiratory History: No Pertinent History Endocrine Medical History: No Pertinent History Musculoskeletal History: No Pertinent History GI Medical History: No Pertinent History History: No Pertinent History Psycho-Social History: Anxiety Male Reproductive Disorders: No Pertinent History Other Medical History: right hand fracture - Past Surgical History Past Surgical History: Yes Gastrointestinal: Cholecystectomy Other Surgical History: wisdom concious sedation, bottom teeth implants - Social History Smoking Status: Former smoker How long have you smoked: 16 years Exposure to second hand smoke: Yes Drug Use: none Patient Lives Alone: No - Social Determinants of Health Will the patient participate in the screening: Yes Do you worry about a steady place to live?: No Do you have any problems with any of the following?: No known problems In the past 12 months,have you had to go without utilities?: No Transportation Issues: No Has anyone in your support network made you feel unsafe?: No Have you or anyone in your house had to go without enough: No - Nursing Vital Signs Nursing Vital Signs: Initial Vital Signs Blood Pressure 188/103 08/17/24 14:51 O2 Sat by Pulse Oximetry 100 08/17/24 14:51 Pain Scale Pain Intensity 0 - Physical Exam General Appearance: no apparent distress, alert Eye Exam: PERRL/EOMI Ears, Nose, Throat Exam: normal ENT inspection Neck Exam: normal inspection, non-tender, supple, full range of motion Respiratory Exam: normal breath sounds, lungs clear Cardiovascular Exam: regular rate/rhythm, normal heart sounds Gastrointestinal/Abdomen Exam: soft, normal bowel sounds, No tenderness Back Exam: normal inspection Extremity Exam: inflammation, swelling, tenderness Neurologic Exam: alert, oriented x 3, cooperative, 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 Skin Exam: normal color, rash SpO2 Interpretation: normal SpO2: 100 O2 Delivery: Room Air Ordered Tests: Active Orders 24 hr Category Date Time Status IV Insertion STAT Care 08/17/24 15:26 Active CHEST 1 VIEW (PORTABLE) Stat Exams 08/17/24 15:26 Completed VENOUS BILATERAL EXTREMITY [US] Stat Exams 08/17/24 15:27 Completed BLOOD CULTURE Stat Lab 08/17/24 15:44 Received CBC W DIFF Stat Lab 08/17/24 15:37 Completed CMP Stat Lab 08/17/24 15:37 Completed Lactic Acid Stat Lab 08/17/24 15:26 Completed MAGNESIUM Stat Lab 08/17/24 15:37 Completed NT PRO BNPII Stat Lab 08/17/24 15:37 Completed PROCALCITONIN Stat Lab 08/17/24 15:37 Completed UA W/RFX UR CULTURE Stat Lab 08/17/24 15:26 Ordered Medication Summary Generic Name Dose Route Start Last Admin Trade Name Nicoq PRN Reason Stop Dose Admin Furosemide 20 mg 08/17/24 17:16 Furosemide 20 Mg Tablet PO 08/17/24 17:17 ONCE STA Lab/Rad Data: Laboratory Result Diagrams 08/17/24 15:37 08/17/24 15:37 Laboratory Results 08/17/24 08/17/24 08/17/24 Range/Units 15:37 15:37 15:37 WBC 5.6 (4.23-9.07) x10^3/uL RBC 4.76 (4.63-6.08) x10^6/uL Hgb 13.4 L (13.7-17.5) g/dL Hct 40.3 (40.1-51.0) % MCV 84.7 (79.0-92.2) fL MCH 28.2 (25.7-32.2) pg MCHC 33.3 (32.3-36.5) g/dL RDW 12.5 (11.6-14.4) % Plt Count 282 (163-337) x10^3/uL MPV 9.0 L (9.4-12.4) fL Gran % 55.2 (34.0-67.9) % Immature Gran % (Auto) 0.2 (0.001-0.429) % Nucleat RBC Rel Count 0.0 (0.00-0.2) % Eos # (Auto) 0.07 (0.04-0.54) x10^3/uL Immature Gran # (Auto) 0.01 (0.001-0.031) x10^3u/L Absolute Lymphs (auto) 1.95 (1.32-3.57) x10^3/uL Absolute Monos (auto) 0.47 (0.30-0.82) x10^3/uL Absolute Nucleated RBC 0.00 (0.00-0.012) x10^3u/L Lymphocytes % 34.6 (21.8-53.1) % Monocytes % 8.3 (5.3-12.2) % Eosinophils % 1.2 (0.8-7.0) % Basophils % 0.5 (0.2-1.2) % Absolute Granulocytes 3.10 (1.78-5.38) x10^3/uL Basophils # 0.03 (0.01-0.08) x10^3/uL Sodium 138 (135-145) mmol/L Potassium 3.7 (3.5-5.1) mmol/L Chloride 102 (98-107) mmol/L Carbon Dioxide 31 H (22-30) mmol/L Anion Gap 9.5 (5-15) MEQ/L BUN 11 (9-20) mg/dL Creatinine 1.17 (0.66-1.25) mg/dL Estimated GFR 81.8 ML/MIN Glucose 86 (74-106) mg/dL Lactic Acid (0.4-2.0) Calcium 9.1 (8.4-10.2) mg/dL Magnesium 2.0 (1.6-2.3) mg/dL Total Bilirubin 0.40 (0.2-1.3) mg/dL AST 27 (17-59) U/L ALT 34 (0-50) U/L Alkaline Phosphatase 70 (38-126) U/L NT-Pro-B Natriuret Pep < 20.0 (<300) pg/mL Serum Total Protein 7.1 (6.3-8.2) g/dL Albumin 4.4 (3.5-5.0) g/dL Procalcitonin 0.044 (0.030-0.080) ng/mL 08/17/24 Range/Units 15:26 WBC (4.23-9.07) x10^3/uL RBC (4.63-6.08) x10^6/uL Hgb (13.7-17.5) g/dL Hct (40.1-51.0) % MCV (79.0-92.2) fL MCH (25.7-32.2) pg MCHC (32.3-36.5) g/dL RDW (11.6-14.4) % Plt Count (163-337) x10^3/uL MPV (9.4-12.4) fL Gran % (34.0-67.9) % Immature Gran % (Auto) (0.001-0.429) % Nucleat RBC Rel Count (0.00-0.2) % Eos # (Auto) (0.04-0.54) x10^3/uL Immature Gran # (Auto) (0.001-0.031) x10^3u/L Absolute Lymphs (auto) (1.32-3.57) x10^3/uL Absolute Monos (auto) (0.30-0.82) x10^3/uL Absolute Nucleated RBC (0.00-0.012) x10^3u/L Lymphocytes % (21.8-53.1) % Monocytes % (5.3-12.2) % Eosinophils % (0.8-7.0) % Basophils % (0.2-1.2) % Absolute Granulocytes (1.78-5.38) x10^3/uL Basophils # (0.01-0.08) x10^3/uL Sodium (135-145) mmol/L Potassium (3.5-5.1) mmol/L Chloride (98-107) mmol/L Carbon Dioxide (22-30) mmol/L Anion Gap (5-15) MEQ/L BUN (9-20) mg/dL Creatinine (0.66-1.25) mg/dL Estimated GFR ML/MIN Glucose (74-106) mg/dL Lactic Acid 1.9 (0.4-2.0) Calcium (8.4-10.2) mg/dL Magnesium (1.6-2.3) mg/dL Total Bilirubin (0.2-1.3) mg/dL AST (17-59) U/L ALT (0-50) U/L Alkaline Phosphatase (38-126) U/L NT-Pro-B Natriuret Pep (<300) pg/mL Serum Total Protein (6.3-8.2) g/dL Albumin (3.5-5.0) g/dL Procalcitonin (0.030-0.080) ng/mL - Progress Progress: unchanged Progress Note: 08/17/24 17:17 38 years old healthy male is evaluated in the ER for bilateral lower extremity swelling with 1+ pitting edema and mild erythema. No increased temperature. No tenderness. No shortness of breath chest pain or palpitations and no history of coronary artery disease/CHF. No recent sickness. Chest x-ray negative for any acute cardiopulmonary findings, normal white count, normal lactate and procalcitonin. Chemistries fairly unremarkable and normal BNP. I have obtained bilateral ultrasound DVT scan which are negative as well. I believe patient's swelling could have some element of early CHF versus prolonged standing as patient works as a building construction ironworker. Recommended compression stocking, will give few days worth of Lasix to go home, low-salt diet and outpatient follow-up for further evaluation. Discussed signs symptoms of worsening needing return to ER which he seems understanding. Stable for discharge. Counseled pt/family regarding: lab results, diagnosis, need for follow-up, rad results Medical Desision Making - Diagnostic Testing Diagnostic test were ordered, analyzed, and reviewed by me: Yes Radiological Interpretation: Reviewed by me - Risk of complications The pt has a mod risk of morbidity or mortality based on: Need for prescription drug management - Departure Departure Disposition: Home Clinical Impression: Edema of both legs Condition: Stable Critical Care Time: No Referrals: DOCTOR,NO FAMILY [Primary Care Provider] - Follow up with PCP 1 day Instructions: Dependent Edema (DC) Additional Instructions: Take low-salt diet, Tylenol as needed for pain. Use compression stocking and keep them elevated. Take Lasix for next few days and see if has improvement in swelling. Follow-up with primary care for reevaluation. Return to ER for increasing pain swelling or if develop redness, fever chills, difficulty breathing etc. Prescriptions: Furosemide 20 mg [Lasix 20 mg] 20 mg PO DAILY #10 tablet
[2024-08-17 15:32] VITALS: RESP 18
[2024-08-17 15:55] LABS: BASOPHIL % 0.5 % (0.2-1.2); Basophil (Absolute #) 0.03 x10^3/uL (0.01-0.08); Eosinophil % 1.2 % (0.8-7.0); Eosinophil (Absolute #) 0.07 x10^3/uL (0.04-0.54); Hematocrit 40.3 % (40.1-51.0); Hemoglobin 13.4 g/dL (13.7-17.5); IMMATURE GRAN # 0.01 x10^3u/L (0.001-0.031); IMMATURE GRAN % 0.2 % (0.001-0.429); Lymphocyte (Absolute #) 1.95 x10^3/uL (1.32-3.57); Lymphocytes % 34.6 % (21.8-53.1); Mean Cell Volume 84.7 fL (79.0-92.2); Mean Corpuscular Hemoglobin 28.2 pg (25.7-32.2); Mean Corpuscular Hgb Concent. 33.3 g/dL (32.3-36.5); Monocyte (Absolute #) 0.47 x10^3/uL (0.30-0.82); Monocytes % 8.3 % (5.3-12.2); Neutrophil % 55.2 % (34.0-67.9); Platelet Count 282 x10^3/uL (163-337); Red Blood Count 4.76 x10^6/uL (4.63-6.08); Red Cell Distribution Width 12.5 % (11.6-14.4); White Blood Count 5.6 x10^3/uL (4.23-9.07)
[2024-08-17 16:09] LABS: ALBUMIN 4.4 g/dL (3.5-5.0); ANION GAP 9.5 MEQ/L (5-15); BILIRUBIN,TOTAL 0.4 mg/dL (0.2-1.3); Calcium 9.1 mg/dL (8.4-10.2); Creatinine 1 1.17 mg/dL (0.66-1.25); EST GLOMERULAR FILTRATION RATE 81.8 ML/MIN; Potassium 3.7 mmol/L (3.5-5.1); Total Protein 7.1 g/dL (6.3-8.2)
--- NOTE | 2024-08-17 16:26 | XRAY ---
Indication: Leg swelling. CHF. Comparison: None Portable chest chest demonstrates minimal left costophrenic angle subsegmental atelectasis/scarring. Remaining heart, lungs, and bony thorax normal.
[2024-08-17 16:29] LABS: NT PRO BNPII < 20.0 pg/mL (<300); PROCALCITONIN 0.044 ng/mL (0.030-0.080)
--- NOTE | 2024-08-17 16:34 | XRAY ---
Indication: Bilateral leg swelling. Two-dimensional sonogram and color Doppler imaging major venous vessels left and right leg performed. Comparison: None No thrombus seen in the examined deep venous vessels left and right leg including greater saphenous vein. Veins demonstrate normal compressibility. Venous waveforms are normal with and without augmentation. Impression: Left and right legs negative for DVT.
[2024-08-17 17:01] VITALS: BP 155/89; PULSE 79
[2024-08-17 17:20] VITALS: O2SAT 100
[2024-08-17] MEDS: LASIX 20 MG PO STA (17:46)
== END 2024-08-17 18:03 | disposition home or self-care (01) ==
LOC: ED 14:43
DX: R60.0 Localized edema (principal); I10 Essential (primary) hypertension; Z79.899 Other long term (current) drug therapy
CPT/HCPCS: 36415; 71045; 80053; 83605; 83735; 83880; 84145; 85025; 87040; 93970; 99284; 99285; A9270-GY